=== PATIENT | male | born 2000 | race Caucasian/White ===

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

== ENCOUNTER 2020-03-30 11:21 | Emergency (ER) | payer OTHER, MEDICAID ==
[~2020-03-30] VITALS: Ht 180.3 cm; Wt 66.8 kg
[2020-03-30 13:06] VITALS: BP 104/73
== END 2020-03-30 13:18 | disposition home or self-care (01) ==
LOC: ER 11:22
DX: Z20.828 Contact with and (suspected) exposure to other viral communicable diseases (principal); R06.02 Shortness of breath; R42 Dizziness and giddiness; R05 Cough; R11.10 Vomiting, unspecified; J02.9 Acute pharyngitis, unspecified
CPT/HCPCS: 36415; 71045; 99284; U0003; 99283